=== PATIENT | female | born 1995 | race Caucasian/White ===

== ENCOUNTER 2016-07-10 19:13 | Emergency (ER) | payer OTHER ==
[2016-07-10 19:20] VITALS: RESP 16; TEMP 98.1
[2016-07-10 20:27] LABS: RBC,URINE 50-182 /hpf (0-3); WBC,URINE 50-182 /hpf (0-3)
--- NOTE | 2016-07-10 20:32 | EDPHY ---
H & P Time Seen by Provider: 07/10/16 20:04 HPI/ROS: CHIEF COMPLAINT: "I think I have a UTI" HISTORY OF PRESENT ILLNESS: 20-year-old immunocompetent female, University Student, complaining of 1 day of dysuria, increased frequency, hematuria. No nausea no vomiting. No abdominal pain. REVIEW OF SYSTEMS: A ten point review of systems was performed and is negative with the exception of the items mentioned in the HPI PAST MEDICAL & SURGICAL HISTORY: No pertinent medical or surgical history SOCIAL HISTORY: Student PHYSICAL EXAM (Prior to examination, patient consented to physical exam, hands were washed and my usual and customary physical exam procedures followed) 1) GENERAL: Well-developed, well-nourished, alert and oriented. Appears to be in no acute distress. 2) HEAD: Normocephalic, atraumatic 3) HEENT: Sclera anicteric. 4) NECK: Full range of motion 5) LUNGS: Breathing comfortably 6) Psychiatric: Patient is oriented X 3, there is no agitation. 7) ABDOMEN: No guarding, no rebound, no focal tenderness, negative McBurney's, negative Guevara's, negative Rovsing's, negative peritoneal sign, 8) MUSCULOSKELETAL: Moving all extremities, no focal areas of tenderness, no obvious trauma. No peripheral edema or discoloration. 9) BACK: No CVA tenderness. 10) SKIN: No rash, no petechiae. DIFFERENTIAL DIAGNOSIS: in no particular include but limited to cystitis, pyelonephritis, urosepsis Smoking Status: Never smoked Constitutional: Initial Vital Signs Temperature (C) 36.7 C 07/10/16 19:16 Heart Rate 103 H 07/10/16 19:16 Respiratory Rate 16 07/10/16 19:16 Blood Pressure 121/82 H 07/10/16 19:16 O2 Sat (%) 96 07/10/16 19:16 O2 Delivery Mode Room Air Allergies/Adverse Reactions: No Known Allergies Allergy (Verified 07/10/16 19:20) Home Medications: Medication Instructions Recorded Adderall 10 MG (RX) 08/02/14 Zoloft 25mg (RX) 08/02/14 LORazepam [Ativan 1 mg (RX)] 0.5 mg PO Q6 PRN #10 tab 02/10/16 Cephalexin [Keflex] 500 mg PO BID 7 Days 07/10/16 Phenazopyridine HCl [Pyridium] 200 mg PO PC #10 tab 07/10/16 Xanax 07/10/16 MDM/Departure - [facility] ED Course/Re-evaluation: I think the patient can be treated on outpatient basis. I do not think she is septic. She is tolerating oral intake. Started on Keflex and Pyridium. Usual and customary UTI precautions instructions provided. - Depart Disposition: Home, Routine, Self-Care Clinical Impression: Urinary tract infection Qualifiers: Urinary tract infection type: acute cystitis Hematuria presence: with hematuria Qualified Code(s): N30.01 - Acute cystitis with hematuria Condition: Good Instructions: Urinary Tract Infection in Women (ED) Additional Instructions: Return to the ER immediately if you experience fevers/chills, flu like symptoms , inability to tolerate oral intake, nausea or vomiting, or any other symptoms that concern you. Prescriptions: Cephalexin [Keflex] 500 mg PO BID 7 Days Phenazopyridine HCl [Pyridium] 200 mg PO PC #10 tab Referrals: NABIL Pinedo,. [Clinic] - 1-2 days without fail
[2016-07-10 20:36] LABS: COLOR AMBER
[2016-07-10] MEDS ORDERED: CEPHALEXIN 500 MG CAP PO ONE ×2 (20:45→20:46)
[2016-07-10 20:50] VITALS: BP 123/78; PULSE 73; O2SAT 97
== END 2016-07-10 20:49 | disposition home or self-care (01) ==
DX: N30.01 Acute cystitis with hematuria (principal); B96.20 Unspecified Escherichia coli [E. coli] as the cause of diseases classified elsewhere

== ENCOUNTER 2016-07-25 18:46 | Emergency (ER) | payer OTHER ==
--- NOTE | 2016-07-25 18:49 | EDPHY ---
H & P Time Seen by Provider: 07/25/16 18:49 HPI/ROS: CHIEF COMPLAINT: Seizure HISTORY OF PRESENT ILLNESS: The patient presents to the ED after a witnessed seizure. The patient reports that she has recently stopped taking Xanax which she had been prescribed on a daily basis. She is interested in stopping the medication in perpituity. The patient did report a history of moderate alcohol consumption and is also recently cut back on her alcohol consumption. The patient has had a mild upper respiratory illness over the past 3 days. The patient denies any prior history of seizure. The patient did not fall or strike her head today. The patient does complain of a moderate frontal headache. The patient denies taking additional medications. She denies any complaints of fever, cough congestion, focal numbness, weakness or other concerns. REVIEW OF SYSTEMS: A comprehensive 10 point review of systems is otherwise negative aside from elements mentioned in the history of present illness. Source: Patient Exam Limitations: No limitations - Medical/Surgical History Hx Asthma: No Hx Chronic Respiratory Disease: No Hx Diabetes: No Hx Cardiac Disease: No Hx Renal Disease: No Hx Cirrhosis: No Hx Alcoholism: Yes Hx HIV/AIDS: No Hx Splenectomy or Spleen Trauma: No Other PMH: anxiety, depression, ADHD, Psoriasis,. Denies psh, "possibly alcoholic" - Social History Smoking Status: Never smoked - Physical Exam Exam: General Appearance: Alert, no distress Head: Normocephalic atraumatic Neck: No midline tenderness, cleared cervical spine via nexus criteria Eyes: Pupils equal and round no pallor or injection ENT, Mouth: Mild tongue abrasion noted to the lateral aspect of left tongue Respiratory: There are no retractions, lungs are clear to auscultation Cardiovascular: Regular rate and rhythm Gastrointestinal: Abdomen is soft and nontender, no masses, bowel sounds normal Neurological: A&O, normal motor function, normal sensory exam, normal cranial nerves Skin: Warm and dry, no rashes Musculoskeletal: Neck is supple nontender Extremities: symmetrical, full range of motion Constitutional: Initial Vital Signs Temperature (C) 37.1 C 07/25/16 18:53 Heart Rate 101 H 07/25/16 18:53 Respiratory Rate 18 07/25/16 18:53 Blood Pressure 128/83 H 07/25/16 18:53 O2 Sat (%) 95 07/25/16 18:53 O2 Delivery Mode Room Air Allergies/Adverse Reactions: No Known Allergies Allergy (Verified 07/10/16 19:20) Home Medications: Medication Instructions Recorded Adderall 10 MG (RX) 08/02/14 Zoloft 25mg (RX) 08/02/14 LORazepam [Ativan 1 mg (RX)] 0.5 mg PO Q6 PRN #10 tab 02/10/16 Cephalexin [Keflex] 500 mg PO BID 7 Days 07/10/16 Phenazopyridine HCl [Pyridium] 200 mg PO PC #10 tab 07/10/16 Xanax 07/10/16 Medical Decision Making - Diagnostics Imaging: Imaging Impressions Head CT 07/25/16 19:36 Impression: 1. Normal CT brain without contrast. 2. Consider MRI of the brain without and with contrast enhancement, if there is continued clinical concern. Findings and recommendations discussed with Emergency Department physician, Louis Valverde at 20:01 hour, 07/25/2016. Final report concurs with initial preliminary interpretation. ED Course/Re-evaluation: The patient presents to the ED after a witnessed seizure. In the emergency department the patient does complain of a frontal headache. This prompted a CT scan of the head to be ordered which demonstrated no evidence of intracranial mass or hemorrhage. The patient did have screening laboratory studies performed which are unremarkable. The patient presents to the ED after a likely provoked seizure from alcohol and benzodiazepine withdrawal. The patient had no further seizure activity in the ED. The patient has been instructed not to drive or participate in dangerous activities until cleared to do so by Neurology. The patient does understand to return to the emergency department for any recurrent seizure, worsening headache , fever, numbness, weakness or other concerns. The patient did received oral ibuprofen in the emergency department. She was re -evaluated by myself at 8:30 p.m. and continues to be neurologically intact. The patient is able to competently articulate the follow-up plan and discharge instructions. Differential Diagnosis: Differential diagnosis considered includes alcohol withdrawal seizure, benzodiazepine withdrawal, epilepsy, metabolic abnormality, syncope, intracranial hemorrhage - Data Points Laboratory Results: Laboratory Results 07/25/16 18:55 07/25/16 18:55 07/25/16 07/25/16 18:55 18:55 WBC 7.46 10^3/uL 10^3/uL (3.80-9.50) RBC 4.65 10^6/uL 10^6/uL (4.18-5.33) Hgb 15.4 g/dL g/dL (12.6-16.3) Hct 41.4 % % (38.0-47.0) MCV 89.0 fL fL (81.5-99.8) MCH 33.1 pg pg (27.9-34.1) MCHC 37.2 g/dL H g/dL (32.4-36.7) RDW 11.7 % % (11.5-15.2) Plt Count 352 10^3/uL 10^3/uL (150-400) MPV 8.7 fL fL (8.7-11.7) Neut % (Auto) 65.5 % % (39.3-74.2) Lymph % (Auto) 24.8 % % (15.0-45.0) Lucas % (Auto) 8.4 % % (4.5-13.0) Eos % (Auto) 0.4 % L % (0.6-7.6) Baso % (Auto) 0.5 % % (0.3-1.7) Nucleat RBC Rel Count 0.0 % % (0.0-0.2) Absolute Neuts (auto) 4.88 10^3/uL 10^3/uL (1.70-6.50) Absolute Lymphs (auto) 1.85 10^3/uL 10^3/uL (1.00-3.00) Absolute Monos (auto) 0.63 10^3/uL 10^3/uL (0.30-0.80) Absolute Eos (auto) 0.03 10^3/uL 10^3/uL (0.03-0.40) Absolute Basos (auto) 0.04 10^3/uL 10^3/uL (0.02-0.10) Absolute Nucleated RBC 0.00 10^3/uL 10^3/uL (0-0.01) Immature Gran % 0.4 % % (0.0-1.1) Immature Gran # 0.03 10^3/uL 10^3/uL (0.00-0.10) Sodium 135 mEq/L mEq/L (134-144) Potassium 3.3 mEq/L L mEq/L (3.5-5.2) Chloride 97 mEq/L mEq/L (97-110) Carbon Dioxide 21 mEq/l L mEq/l (22-31) Anion Gap 17 mEq/L H mEq/L (8-16) BUN 18 mg/dL mg/dL (7-23) Creatinine 0.8 mg/dL mg/dL (0.6-1.0) Estimated GFR > 60 Glucose 109 mg/dL H mg/dL (70-100) Calcium 9.7 mg/dL mg/dL (8.5-10.4) Departure - Departure Disposition: Home, Routine, Self-Care Clinical Impression: Seizure Condition: Good Instructions: New-Onset Seizure in Adults (ED) Additional Instructions: 1. No driving, dangerous activities such as riding a ski lift, swimming in a pool or other behavior that could put you or someone else at risk in the event of a recurrent seizure. You will need to be cleared by a neurologist to resume these activities. 2. Please return to the ED for recurrent seizure, headache, numbness, weakness, altered mental status or other concerns. 3. Please follow up with neurologist you have been referred to this week to schedule a follow-up appointment. Referrals: Doni Summers DO [Medical Doctor] - As per Instructions
[2016-07-25 19:47] LABS: % IMMATURE GRANULYOCYTES 0.4 % (0.0-1.1); ABSOLUTE IMMATURE GRANULOCYTES 0.03 10^3/uL (0.00-0.10); ADD DIFF? NO; ADD MORPH? NO; ADD SCAN? NO; ATYPICAL LYMPHOCYTE FLAG 10 (0-99); FRAGMENT RBC FLAG 0 (0-99); HEMATOCRIT 41.4 % (38.0-47.0); HEMOGLOBIN 15.4 g/dL (12.6-16.3); LEFT SHIFT FLG 0 (0-99); LIPEMIA HEMOLYSIS FLAG 90 (0-99); MEAN CELL HEMOGLOBIN 33.1 pg (27.9-34.1); MEAN CELL HEMOGLOBIN CONCENTR. 37.2 g/dL (32.4-36.7); MEAN PLATELET VOLUME 8.7 fL (8.7-11.7); PLATELET CLUMPS FLAG 50 (0-99); PLATELET COUNT 352 10^3/uL (150-400); RED BLOOD CELL COUNT 4.65 10^6/uL (4.18-5.33); RED CELL DISTRIBUTION WIDTH 11.7 % (11.5-15.2)
[2016-07-25 19:52] LABS: ANION GAP 17 mEq/L (8-16); CALCIUM 9.7 mg/dL (8.5-10.4); CARBON DIOXIDE 21 mEq/l (22-31); CHLORIDE 97 mEq/L (97-110); CREATININE 0.8 mg/dL (0.6-1.0); GLOMERULAR FILTRATION RATE > 60; GLUCOSE 109 mg/dL (70-100); POTASSIUM 3.3 mEq/L (3.5-5.2); SODIUM 135 mEq/L (134-144)
[2016-07-25] MEDS ORDERED: IBUPROFEN 600 MG TAB PO ONE (20:01)
[2016-07-25 20:08] VITALS: O2SAT 96
[2016-07-25 21:06] VITALS: BP 107/73; PULSE 85; RESP 18; TEMP 97.9
== END 2016-07-25 21:06 | disposition home or self-care (01) ==
LOC: EDUNIT#
DX: R56.9 Unspecified convulsions (principal)